=== PATIENT | female | born 1990 | race Caucasian/White ===

== ENCOUNTER 2016-07-28 21:31 | Emergency (ER) ==
[2016-07-28 21:41] VITALS: BP 118/071
[2016-07-28] MEDS ORDERED: XYLOCAINE-MPF 1% INJ ONE (22:04)
[2016-07-28] MEDS ORDERED: TORADOL IM ONE (22:04)
[2016-07-28] MEDS ORDERED: ROCEPHIN IM ONE (22:04)
--- NOTE | 2016-07-28 22:11 | PROVIDER DOCUMENTATION ---
HPI-General Adult - General Chief Complaint: Toothache Stated Complaint: TOOTHACHE Time Seen by Provider: 07/28/16 21:49 Source: patient Allergies/Adverse Reactions: Patient Allergies Allergy/AdvReac Type Severity Reaction Status Date / Time latex Allergy ITCHING Verified 09/05/15 01:28 Home Medications: Home Medication List Medication Instructions Recorded Confirmed Last Taken Type Amoxicillin [Amoxil] 500 mg PO BID #20 capsule 05/18/16 Unknown Rx Famotidine [Pepcid] 20 mg PO DAILY #20 tablet 05/18/16 Unknown Rx Ketorolac [Toradol] 10 mg PO Q6H PRN PRN #20 tablet 05/18/16 Unknown Rx Amoxicillin/Potassium Clav 1 each PO BID #20 tablet 07/28/16 Unknown Rx [Augmentin 875-125 Tablet] Ketorolac [Toradol] 10 mg PO Q6H PRN PRN #20 tablet 07/28/16 Unknown Rx - History of Present Illness -Gen Adult Nature of Presenting Problems: 25 YOF PRESENTS TO ED WITH C/O PT STATES SHE HAS HAD DENTAL PAIN FOR 3 DAYS. PT STATES WISDOM TEETH ARE COMING IN. PT STATES PAIN IS RT UPPER MOLAR. Location of Pain/Injury: reports: mouth Pain Radiation: reports: no radiation Quality of Pain: reports: aching Severity: reports: moderate Onset/Duration: reports: 3 days ago Timing: reports: still present Context/Activities at Onset: reports: light activity Modifying Factors: improves with: nothing Similar Symptoms Previously?: No Recently seen or treated by another doctor?: No Review of Systems - Adult - REVIEW OF SYSTEMS - ADULT Constitutional: denies: chills, fever Eyes: reports: no symptoms reported Ears, Nose, Mouth & Throat: reports: mouth/dental pain Cardiovascular: denies: chest pain, palpitations, syncope Respiratory: denies: cough, shortness of breath, wheezing Gastrointestinal: denies: abdominal pain, diarrhea, nausea, vomiting Genitourinary: reports: no symptoms reported Musculoskeletal: denies: back pain, neck pain Integumentary: reports: no symptoms reported Neurological: denies: dizziness/vertigo, headache/migraines Psychiatric: reports: no symptoms reported Endocrine: reports: no symptoms reported Hematologic/Lymphatic: reports: no symptoms reported Allergic/Immunologic: reports: no symptoms reported All Other Systems: Reviewed and Negative Past History - Adult - PAST MEDICAL HISTORY-ADULT Review of Records: reports: Nursing Assessment Review, Medications Reviewed - PRIOR SURGERIES/PROCEDURES Surgical/Procedure History: reports: other (lymph nodes) - IMMUNIZATION STATUS Childhood Immunizations: See Nurse Assessment Flu Vaccine: See Nurse Assessment - SOCIAL HISTORY Smoking: denies Substance Use: denies Alcohol Use Frequency: never Living Situation: family Physical Exam-General - CONSTITUTIONAL General Appearance: alert, mild distress - EYES Eyes: PERRL/EOMI, pink conjunctivae - HEAD, EARS, NOSE, MOUTH & THROAT HENMT: normocephalic/atraumatic, moist mucous membranes - NECK Neck: non-tender, full range of motion, supple - RESPIRATORY Respiratory: chest non-tender, lungs clear, normal breath sounds - CARDIOVASCULAR Cardiovascular: normal peripheral pulses, regular rate, rhythm - GASTROINTESTINAL (ABDOMEN) Abdominal Exam: normal bowel sounds, non tender, soft - LYMPHATIC Lymphatic: no adenopathy - MUSCULOSKELETAL Back Exam: normal inspection, no CVA tenderness, no vertebral tenderness Extremity: normal range of motion, non-tender - SKIN Integumentary: normal color, normal turgor, warm/dry - NEUROLOGIC Neurologic: grossly normal - PSYCHIATRIC Psych/Mental Status: oriented x 3 Departure - Departure Time of Disposition Order: 22:05 DIAGNOSIS: Pain, dental Disposition: HOME 01 Certified Medical Emergency: Emergent Condition: Stable Additional Instructions: ED Follow Up Instructions: You have been treated by a care provider in the Emergency Department. These instructions are being provided to you so you can have an understanding of how to care for yourself upon discharge. Upon discharge from the Emergency Department, you are responsible for making arrangements for follow-up care by a physician of your choice. Take all prescribed medications as directed. Return to the Emergency Department immediately for any new or worsening symptoms. You may call the Physician Referral phone number at [phone] to obtain a list of Physicians who are taking new patients. Attestation - Scribe Verification/Attestation Scribe:: Rhys Bustamante Acting as Scribe for:: Clifford Willis Scribmegan documention review:: This chart was documented by a scribe and accurately reflects the service the provider performed and the decisions made by the provider.
== END 2016-07-28 22:27 | disposition home or self-care (01) ==
LOC: P.ED 21:31
DX: K08.89 Other specified disorders of teeth and supporting structures (principal); Z79.899 Other long term (current) drug therapy
CPT/HCPCS: 96372; J0696; J1885